=== PATIENT | female | born 1960 | race African-American/Black ===

== ENCOUNTER 2016-05-12 14:54 | Inpatient (IN) | payer BC ==
[~2016-05-12] VITALS: Ht 172.7 cm; Wt 85.9 kg
[~2016-05-12 14:54] MED LIST: CATAPRES0.1 MG PO; COZAAR100 MG PO; HYDROCODONE-APA1 TAB PO; NORVASC10 MG PO
--- NOTE | 2016-05-12 16:07 | NUR ---
PT TO ROOM AMBULATORY. PT ALERT AND ORIENTED PLACED ON TELE NSR 93 BPM. WILL ADMIT.
[2016-05-12] MEDS ORDERED: PLAQUENIL200 MG PO (16:10)
[2016-05-12] MEDS ORDERED: CYCLOBENZAPRINE5 MG PO (16:11)
[2016-05-12 16:13] VITALS: BP 142/96; Ht 172.7 cm; Wt 85.9 kg
[2016-05-12 16:49] LABS: BASOPHILS 0.2 % (0.0-2.0); EOSINOPHILS 3.4 % (0-7); HEMATOCRIT 32.4 % (36.0-48.0); HEMOGLOBIN 10.5 g/dL (12-16); IMMATURE GRANULOCYTES 0.2 % (0-5); LYMPHOCYTES 41.8 % (15-50); MCH 23.4 pg (26.0-34.0); MCHC 32.4 g/dL (31.0-37.0); MCV 72.2 fL (80.0-100.0); MEAN PLATELET VOLUME 8.6 fL (7.4-10.4); MONOCYTES 2.4 % (2-11); PLATELET COUNT 387 10x3/uL (130-400); RBC 4.49 10x6/uL (4.00-5.40); RDW 17.3 % (11.5-14.5); WBC 6.2 10x3/uL (4.8-10.8)
[2016-05-12 17:05] LABS: APTT 30.7 SECONDS (22.8-39.4); INR 1.03 (0.85-1.17); PROTIME 13.3 SECONDS (11.6-15.0)
[2016-05-12 17:08] LABS: CALC OSMOLALITY 286 mosm/kg (275-300); CALCIUM 8.6 mg/dL (8.5-10.1); CARBON DIOXIDE 27.6 mmol/L (21.0-32.0); CHLORIDE - SERUM 105 mmol/L (98-107); CKMB 0.5 U/L (0.0-3.6); CREATINE KINASE 83 UL (21-215); CREATININE - SERUM 0.9 mg/dL (0.6-1.3); GLUCOSE 123 mg/dL (74-106); POTASSIUM - SERUM 3.1 mmol/L (3.5-5.1); SODIUM 142 mmol/L (136-145); UREA NITROGEN 21 mg/dL (7-18); eGFR NON AFRICAN AMERICAN 68 mL/min (90-120)
[2016-05-12 17:09] LABS: TROPONIN-I < 0.017 ng/mL (0.000-0.060)
--- NOTE | 2016-05-12 18:02 | NUR ---
PAGED DR BOUCHER HEAD OF VISUAL MERCHANDISING FOR DR SHAY. PT REQUESTING NAPROXEN FOR GOLDSTEIN. HE SAID HE WOULD LOOK THROUGH HER CHART AND PUT IN AN ORDER.
--- NOTE | 2016-05-12 18:06 | NUR ---
ATTEMPTED TO SITE PT PIV X2 STICKS. NO SUCCESS. ASKED ANOTHER RN ON FLOOR TO TRY. TOLD PT ABOUT DR BOUCHER ORDERING MEDICATION SOON. SHE IS VERY UPSET. SCREAMING AT ME, NURSING STAFF. AND HER SISTER IN ROOM. TOLD PT SOON MEDICATION WAS AVAILABLE I WOULD GIVE IT.
--- NOTE | 2016-05-12 18:08 | HP ---
PATIENT: YRIS HAGER MEDICAL RECORD: [id number] ACCOUNT: [id number] LOCATION:[address] : 58 ADMISSION DATE: 05/12/16 HISTORY AND PHYSICAL EXAMINATION HISTORY OF PRESENT ILLNESS: A 56-year-old -[place] female presents with a complaint of syncopal episode yesterday. She states she was out 7-10 minutes. She called 911 when she aroused. Reported a delayed response. She began to feel better, called back and cancel. She does not remember any prior episodes. She has a history of systemic lupus erythematosus, hypertensive disorder. CURRENT MEDICATIONS: Folic acid, hydroxychloroquine, losartan/hydrochlorothiazide 100/25 one daily, prednisone 5 mg daily, promethazine 25 mg p.r.n. nausea. ALLERGIES: PENICILLIN AND SULFA DRUGS. PAST SURGICAL HISTORY: Denies any significant family history. SOCIAL HISTORY: Daily smoker, 3-4 cigarettes daily. REVIEW OF SYSTEMS: GENERAL: No acute change in weight or appetite. HEENT: No cephalgia, visual changes, tinnitus, epistaxis or dysphagia. CARDIOVASCULAR: Denies chest pain, does admit recent syncopal episodes, multiple risk factors. PULMONARY: Denies hemoptysis, denies night sweats. GASTROINTESTINAL: Denies hematemesis, hematochezia or melena. GENITOURINARY: Denies dysuria, denies change in frequency. MUSCULOSKELETAL: No acute changes. ENDOCRINE: Denies polyuria, polydipsia, or polyphagia. PHYSICAL EXAMINATION: VITAL SIGNS: Height 5 feet 8 inches, weight 191 pounds, BMI is 29, blood pressure 148/90. Orthostatics obtained 144/90 supine, 126/78 seated, 140/90 standing, heart rate 64, respirations 18, and temperature 98.1. GENERAL: Alert, oriented, anxious. HEENT: Normocephalic, atraumatic. Eyes: Pupils are equally round and reactive to light and accommodation. Extraocular muscles intact. Conjunctivae not injected. Ears: Canals patent, TMs are intact. Nose: Nares patent without drainage. Throat: No erythema, no exudates. NECK: Supple. No lymphadenopathy, no JVD. Bilateral carotid bruit present. HEART: Regular rate and rhythm. No S3, S4, no rub. LUNGS: Clear to auscultation bilaterally. Breathing is nonlabored. ABDOMEN: Soft, nontender. Bowel sounds all 4 quadrants. EXTREMITIES: Present times 4, no edema. NEUROLOGICAL: Cranial nerves II-XII grossly intact with no present focal deficits. SKIN: Warm and dry. No rash. LABORATORY DATA: EKG shows sinus arrhythmia, rate of 64, moderate extensive precordial repolarization disturbance, negative T in V5, negative T in V2, V3, V4, V6, abnormal EKG. ASSESSMENT AND PLAN: Syncope, carotid bruits, abnormal EKG, systemic lupus HISTORY AND PHYSICAL [id number] YRIS HAGER erythematosus, hypertension. The patient was admitted. CT of the head without contrast, CK-MB, troponin, BMP, CBC on admission. Echo Dr. Miranda to read, carotid ultrasound, PT, PTT, INR on admission, Plavix 75 mg daily, aspirin 81 mg daily, losartan/hydrochlorothiazide 100/25 one p.o. daily, prednisone 5 mg daily IV normal saline TKO, vital signs routine with telemetry, consult cardiology. CBC, chemistry in a.m. Clear liquid diet, n.p.o. after midnight. TRANSINT:[id number] Voice Confirmation ID: [id number] DOCUMENT ID: [id number] MADALYN GARNETT DO at 1808 CC: [id number] DICTATION DATE: 05/12/16 1528 DRAW PRESS OPERATOR: 05/12/16 1617 ADM IN [facility] [address] [id number]
[2016-05-12 18:15] VITALS: BP 142/96
--- NOTE | 2016-05-12 18:22 | NUR ---
DR BOUCHER ORDERED TYLENOL FOR PT. WENT TO PULL AND NO TYLENOL IN EITHER PYXIS. CALLED PHARM SPOKE TO TEE TO REFILL
--- NOTE | 2016-05-12 18:50 | NUR ---
LISA BANDA TRIED TO SITE PT PT IS REFUSING IV ACCESS UNTIL SHE GETS HER NAPROXEN.
[2016-05-12 22:19] VITALS: BP 153/91
[2016-05-13 01:26] VITALS: BP 135/89
--- NOTE | 2016-05-13 02:58 | NUR ---
PT RESTING IN BED WITH NO DISTRESS. RESPS EVEN/NONLABORED. CPOC.
--- NOTE | 2016-05-13 04:03 | NUR ---
22G IV STARTED IN LEFT HAND X 1 ATTEMPT. PT RESTING. NO DISTRESS. NPO UNTIL SEEN BY MD IN AM.
[2016-05-13 04:29] VITALS: BP 131/80
[2016-05-13 08:59] LABS: BASOPHILS 0.2 % (0.0-2.0); HEMATOCRIT 32.7 % (36.0-48.0); HEMOGLOBIN 10.6 g/dL (12-16); LYMPHOCYTES 47.6 % (15-50); MCH 23.5 pg (26.0-34.0); MCHC 32.4 g/dL (31.0-37.0); MCV 72.3 fL (80.0-100.0); MEAN PLATELET VOLUME 8.2 fL (7.4-10.4); MONOCYTES 3.2 % (2-11); PLATELET COUNT 337 10x3/uL (130-400); RBC 4.52 10x6/uL (4.00-5.40); RDW 17.5 % (11.5-14.5); WBC 4.9 10x3/uL (4.8-10.8)
[2016-05-13 09:04] VITALS: BP 183/78
[2016-05-13 09:11] LABS: CALC OSMOLALITY 284 mosm/kg (275-300); CALCIUM 8.6 mg/dL (8.5-10.1); CARBON DIOXIDE 30.4 mmol/L (21.0-32.0); CHLORIDE - SERUM 105 mmol/L (98-107); CREATININE - SERUM 0.8 mg/dL (0.6-1.3); GLUCOSE 87 mg/dL (74-106); POTASSIUM - SERUM 3.5 mmol/L (3.5-5.1); SODIUM 143 mmol/L (136-145); UREA NITROGEN 16 mg/dL (7-18); eGFR NON AFRICAN AMERICAN 78 mL/min (90-120)
--- NOTE | 2016-05-13 10:38 | NUR ---
0715- PT LAYING IN BED ON RIGHT SIDE WITH EYES CLOSED RESTING. ON MONITOR SHOWING SB, HR 50. ON ROOM AIR. IV SEEN TO LEFT HAND THAT IS CURRENLTY SALINE LOCKED. NPO CURRENLTY ORDERED. NO NEED AT CURRENT TIME. WILL CONTINUE TO MONITOR AND CONTINUE WITH PLAN OF CARE.
[2016-05-13 12:23] VITALS: BP 138/85
--- NOTE | 2016-05-13 13:04 | NUR ---
1300- PT IS WANTING TO KNOW IF SHE CAN EAT SOMETHING. PT IS CURRENTLY NPO ORDERED JUST INCASE PT NEEDS ANY TEST DONE PER REPORT FROM LARRY OPERATOR NURSE MAKENNA. PAGED DR. SHAY AND SPOKE WITH INFORMATION TECHNOLOGY SECURITY MANAGER FROM ANSWERING SERVICE. INFORMATION TECHNOLOGY SECURITY MANAGER STATED SHE WOULD SEND MESSAGE TO DR. BOUCHER WHO IS LATHE HAND. 1305- RECEIVED CALLBACK FROM DR. BOUCEHR. INFORMED DR. BOUCHER THAT PT IS WANTING SOMETHING TO EAT. DR. BOUCHER SAID LONG DR. BENITEZ HAS SEEN HER AND NO NEW ORDERS ARE PUT IN FOR ANY TEST/PROCEDURE THAN HE IS FINE WITH HER HAVING A REGULAR DIET. I INFORMED DR. BOUCHER THAT DR. BENITEZ HAD SEEN PT THIS MORNING AND I HAVE NOT RECEIVED ANY NEW ORDER FOR TEST/PROCEDURE. WILL PUT IN A DIET ORDER AND CONTINUE TO MONITOR.
[2016-05-13 16:19] VITALS: BP 146/94
--- NOTE | 2016-05-13 18:43 | NUR ---
PT UP WALKING AROUND NURSES STATION. NO NEED AT CURRENT TIME. WILL CONTINUE TO MONITOR.
[2016-05-13 20:59] VITALS: BP 116/79
[2016-05-14 00:12] VITALS: BP 110/75
--- NOTE | 2016-05-14 01:51 | NUR ---
RESTING IN BED WITH NO DISTRESS. PIV SALINE LOCKED IN LEFT HAND. NO DISTRESS. SR PER TELEMETRY. CPOC. CALL LIGHT IN REACH.
[2016-05-14 04:00] VITALS: BP 136/83
--- NOTE | 2016-05-14 07:49 | NUR ---
PT AOX4 RESP EVEN AND NONLABORED IV TO LEFT HAND PATENT AND INTACT. PT DENIES NEEDS AT THIS TIME BED AT LOWEST SETTING CALL LIGHT WITH IN REACH WILL CONTINUE TO MONITOR
[2016-05-14 08:40] VITALS: BP 169/98
[2016-05-14] MEDS ORDERED: ASPIRIN325 MG PO (10:08)
--- NOTE | 2016-05-14 11:12 | NUR ---
IV REMOVED AT THIS TIME FROM LEFT HAND WITHOUT DIFFICULTY AND INTACT
--- NOTE | 2016-05-14 12:27 | NUR ---
PT LEFT VIA AMBULATION VIA PRIVATE VEHICLE HOME AT THIS TIME WITH DISCHARGE INSTRUCTIONS IN HAND
--- NOTE | 2016-05-19 14:54 | EC ---
PATIENT:YRIS HAGER DATE OF SERVICE: 05/12/16 SEX: F MEDICAL RECORD: [id number] DATE OF : 58 LOCATION:[address] AGE OF PATIENT: 56 ADMISSION DATE: 05/12/16 REFERRING PHYSICIAN: INTERPRETING PHYSICIAN: TERESITA MIRANDA M.D. ECHOCARDIOGRAM REPORT ECHO CHARGES 4 ECHO COMPLETE CLINICAL DIAGNOSIS: CHF ECHOCARDIOGRAPHIC MEASUREMENTS (adult normal given) AC root (d.<3.7cm) 3.5 LV Septum d (<1.2 cm> 1.5 Valve Excursion 1.9 LV Septum (systole) 1.9 Left Atria (s.<4.0cm> 4.1 LVPW d(<1.2cm) 1.6 RV (d.<2.3cm) 3.9 LVPW (sytole) 2.2 LV diastole(<5.6CM) 4.4 MV E-F(>70mm/sec) LV systole 2.3 LVOT Diameter 1.9 MV exc.(>10mm) 1.1 Est.ejection fraction (50-75%) Pericardial Effusion N DOPPLER: LVIT A 73.0 E 77.0 LA RVSP 22 LVOT 107 AOP1/2T Asc. Ao 147 RVOT 106 RA PA 134 AV Gradient Peak 8.59 AV Mean 4.71 AV Area 2.2 MV Gradient Peak 3.55 MV Mean 1.36 MV Area COMMENTS: Electronic Equipment Installer: Angelica VELIZ [employer] Repair Technician:2 Dr. Miranda TAPE# PACS DATE OF SERVICE: 05/13/2016 REFERRING PHYSICIAN: Jam Milan DO INDICATION: Congestive heart failure. DESCRIPTION: Left ventricle demonstrates left ventricular hypertrophy. No wall motion abnormalities are noted. Estimated ejection fraction is 60%. Mitral valve is structurally normal. There is no regurgitation or prolapse seen. Left atrium is mildly dilated. The aortic valve is trileaflet. There is no stenosis ECHOCARDIOGRAM REPORT [id number] YRIS HAGER or regurgitation seen. Right ventricle is mildly dilated. Tricuspid valve is structurally normal. There is mild regurgitation noted. Right atrium is normal size. There is no pericardial effusion seen. IMPRESSION: 1. Left ventricular hypertrophy with preserved ejection fraction of 60%. 2. Mild tricuspid regurgitation. TRANSINT:[id number] Voice Confirmation ID: [id number] DOCUMENT ID: [id number] TERESTIA MIRANDA M.D. at 1454 CC: [id number] DICTATION DATE: 05/14/1648 FOAM CHARGER: 05/14/16 1210 DIS IN 05/14/16 [facility] [address] [place] [address]
== END 2016-05-14 12:28 | disposition home or self-care (01) | DRG 312 ==
LOC: D.M2 14:54
PROVIDERS: ADMIT Family Medicine
DX: R55 Syncope and collapse (principal); E87.6 Hypokalemia; M32.9 Systemic lupus erythematosus, unspecified; I10 Essential (primary) hypertension; R94.31 Abnormal electrocardiogram [ECG] [EKG]; R09.89 Other specified symptoms and signs involving the circulatory and respiratory systems; I07.1 Rheumatic tricuspid insufficiency; Z72.0 Tobacco use

== ENCOUNTER 2017-05-10 21:19 | Emergency (ER) | payer BC ==
[2016-05-12 16:13] VITALS: BMI 28.8
[~2017-05-10 21:19] MED LIST changes: +ASPIRIN325 MG PO; +CYCLOBENZAPRINE5 MG PO; +PLAQUENIL200 MG PO
== END 2017-05-10 22:26 | disposition home or self-care (01) ==
LOC: D.ER 21:19
DX: T38.0X5A Adverse effect of glucocorticoids and synthetic analogues, initial encounter (principal); Y92.89 Other specified places as the place of occurrence of the external cause; F17.200 Nicotine dependence, unspecified, uncomplicated

== ENCOUNTER → 2017-07-13 06:08 | Outpatient (CLI) | payer BC ==
[2016-05-12 16:13] VITALS: BMI 28.8
== END | disposition home or self-care (01) ==
LOC: D.MAMMO 06:08
DX: Z12.31 Encounter for screening mammogram for malignant neoplasm of breast (principal)

== ENCOUNTER 2017-09-11 15:35 | Emergency (ER) | payer BC ==
[~2017-09-11] VITALS: Ht 172.7 cm; Wt 81.8 kg
[2017-09-11 15:38] VITALS: Ht 172.7 cm; Wt 81.8 kg
[2017-09-11 16:04] LABS: BASOPHILS 0.2 % (0-2); EOSINOPHILS 2.7 % (0-7); HEMATOCRIT 31.5 % (36.0-48.0); HEMOGLOBIN 10.5 g/dL (12-16); IMMATURE GRANULOCYTES 0.2 % (0-5); LYMPHOCYTES 41.8 % (15-50); MCH 22.7 pg (26.0-34.0); MCHC 33.3 g/dL (31.0-37.0); MEAN PLATELET VOLUME 8.8 fL (7.4-10.4); MONOCYTES 3.6 % (2-11); NEUTROPHILS 51.5 % (40-80); PLATELET COUNT 400 10x3/uL (130-400); RBC 4.63 10x6/uL (4.00-5.40); RDW 16.1 % (11.5-14.5); WBC 4.8 10x3/uL (4.8-10.8)
[2017-09-11 16:22] LABS: ALBUMIN 3.1 g/dL (3.4-5.0); ALKALINE PHOSPHATASE 92 U/L (46-116); ALT (SGPT) 15 U/L (10-68); BILIRUBIN - TOTAL 0.53 mg/dL (0.2-1.3); CALC OSMOLALITY 273 mosm/kg (275-300); CALCIUM 8.4 mg/dL (8.5-10.1); CARBON DIOXIDE 25.4 mmol/L (21.0-32.0); CHLORIDE - SERUM 102 mmol/L (98-107); CREATININE - SERUM 0.8 mg/dL (0.6-1.3); GLUCOSE 94 mg/dL (74-106); POTASSIUM - SERUM 3.3 mmol/L (3.5-5.1); PROTEIN - SERUM 7.7 g/dL (6.4-8.2); SODIUM 138 mmol/L (136-145); UREA NITROGEN 8 mg/dL (7-18); eGFR NON AFRICAN AMERICAN 78 mL/min (90-120)
[2017-09-11 16:23] LABS: APTT 30.6 SECONDS (22.8-39.4); INR 1.15 (0.85-1.17)
[2017-09-11 16:33] LABS: CKMB 0.2 U/L (0.0-3.6); LIPASE 129 U/L (73-393)
[2017-09-11 16:34] LABS: TROPONIN-I < 0.017 ng/mL (0.000-0.060)
[2017-09-11] MEDS ORDERED: TORADOL10 MG PO (18:58)
[2017-09-11 19:17] VITALS: BP 147/102
== END 2017-09-11 19:17 | disposition home or self-care (01) ==
LOC: D.ER 15:35
PROVIDERS: Family Medicine
DX: R07.81 Pleurodynia (principal); M32.9 Systemic lupus erythematosus, unspecified; I10 Essential (primary) hypertension

== ENCOUNTER 2018-05-17 09:00 | Outpatient (CLI) | payer BC ==
[2017-09-11 15:38] VITALS: BMI 27.4
[~2018-05-17 09:00] MED LIST changes: +TORADOL10 MG PO
== END 2018-05-17 10:00 | disposition home or self-care (01) ==
LOC: D.MAMMO 09:00
PROVIDERS: ATTEND Internal Medicine Hematology & Oncology
DX: Z12.31 Encounter for screening mammogram for malignant neoplasm of breast (principal)

== ENCOUNTER 2019-08-12 08:00 | Outpatient (CLI) | payer BC ==
[2017-09-11 15:38] VITALS: BMI 27.4
== END 2019-08-12 10:00 | disposition home or self-care (01) ==
LOC: D.MAMMO 08:00
PROVIDERS: ATTEND Family Medicine
DX: Z12.31 Encounter for screening mammogram for malignant neoplasm of breast (principal)